=== PATIENT | male | born 1970 | race Caucasian/White ===

== ENCOUNTER 2022-05-11 21:01 | Inpatient (IN) ==
[2022-05-11] MEDS ORDERED: Morphine Sulfate 2 MG/ML SYRINGE IVP ONE (21:38)
[2022-05-11] MEDS ORDERED: Ondansetron 4 MG/2 ML VIAL IVP ONE (21:38)
[2022-05-11] MEDS ORDERED: Iopamidol - 370 500 ML MLS IVP ONE (21:38)
[2022-05-11] MEDS ORDERED: Ketorolac 30 MG/ML VIAL IVP ONE (21:38)
[2022-05-11] MEDS ORDERED: diazePAM 10 MG/2 ML SYRINGE IVP ONE (21:45)
[2022-05-11] MEDS ORDERED: *HR* OxyCODONE/APAP 5/325 TABLET PO ONE (21:46)
[2022-05-11 22:04] LABS: Basophils # 0.1 K/mcL (0.0-0.2); Basophils % 0.3 %; Eosinophils % 0.1 %; Hematocrit 50.3 % (37.5-50.1); Hemoglobin 16.8 g/dL (12.9-16.9); Immature Granulocytes % 1.1 % (0-4); Lymphocytes # 0.8 K/mcL (0.6-4.6); Lymphocytes % 3.9 %; Mean Corpuscular HGB Conc 33.4 g/dL (31.6-35.5); Mean Corpuscular Hemoglobin 30.2 pg (28.0-33.3); Mean Corpuscular Volume 90.3 fL (83.0-100.0); Mean Platelet Volume 10.4 fL (9.4-12.4); Neutrophils # 17.4 K/mcL (1.6-8.9); Platelet Count 367 K/mcL (140-400); Red Blood Count 5.57 M/mcL (4.19-5.50); Red Cell Distribution Width 13.5 % (11.5-14.5); Segmented Neutrophils % 89.6 %; White Blood Count 19.4 K/mcL (4.3-11.1)
[2022-05-11 22:26] LABS: Albumin 3.5 g/dL (3.5-5.7); Albumin/Globulin Ratio 1.1 (1.1-2.2); Bilirubin,Total 1.9 mg/dL (0.3-1.0); Calcium 8.8 mg/dL (8.6-10.3); Globulin 3.3 g/dL (2.4-3.5); Total Protein 6.8 g/dL (6.4-8.9)
[2022-05-11] MEDS ORDERED: Piperacillin/Tazobactam 3.375 GM in 0.9 % Sodium Chloride Mini Bag 100 ML IVPB ONE (23:08)
[2022-05-11] MEDS ORDERED: Naloxone 0.4 MG/ML INJ IVP PRN (23:34)
[2022-05-11] MEDS ORDERED: Ondansetron 4 MG/2 ML VIAL IVP PRN (23:34)
[2022-05-12] MEDS ORDERED: Morphine Sulfate 2 MG/ML SYRINGE IVP PRN ×2 (00:53→15:10)
[2022-05-12] MEDS ORDERED: 0.9 % Sodium Chloride 1,000 ML IVC ONE (01:37)
[2022-05-12] MEDS ORDERED: Dextrose Gel 15 GM/37.5 ML TUBE PO PRN ×4 (01:40→15:10)
[2022-05-12] MEDS ORDERED: D5% in Water 1,000 ML IVC PRN ×2 (01:40→15:10)
[2022-05-12] MEDS ORDERED: *HR* Dextrose 50 % in Water (Syg) 50 ML SYRINGE IVP PRN ×2 (01:40→15:10)
[2022-05-12] MEDS: MetroNIDAZOLE 500 MG/100 ML 500 MG/100 ML BAG IVPB SCH ×4 (02:08→23:13)
[2022-05-12] MEDS: Ringers Solution, Lactated 1,000 ML IVC SCH ×4 (02:08→23:14)
[2022-05-12 03:19] LABS: Basophils # 0.1 K/mcL (0.0-0.2); Basophils % 0.6 %; Hematocrit 48.1 % (37.5-50.1); Hemoglobin 15.7 g/dL (12.9-16.9); Lymphocytes # 0.9 K/mcL (0.6-4.6); Lymphocytes % 4.1 %; Mean Corpuscular HGB Conc 32.6 g/dL (31.6-35.5); Mean Corpuscular Hemoglobin 29.9 pg (28.0-33.3); Mean Corpuscular Volume 91.6 fL (83.0-100.0); Mean Platelet Volume 10.5 fL (9.4-12.4); Monocytes # 1.1 K/mcL (0.0-1.3); Monocytes % 5.1 %; Neutrophils # 19.6 K/mcL (1.6-8.9); Platelet Count 341 K/mcL (140-400); Red Blood Count 5.25 M/mcL (4.19-5.50); Red Cell Distribution Width 13.7 % (11.5-14.5); Segmented Neutrophils % 89.2 %
[2022-05-12 03:31] LABS: Estimated Average Glucose 123 mg/dl; Hemoglobin A1C 5.9 %
[2022-05-12 03:37] LABS: INR 1.4; Prothrombin Time 15.7 Seconds (9.4-12.1)
[2022-05-12 03:46] LABS: Albumin 3.3 g/dL (3.5-5.7); Albumin/Globulin Ratio 1.1 (1.1-2.2); Bilirubin,Direct 0.9 mg/dL (0.0-0.2); Bilirubin,Total 1.9 mg/dL (0.3-1.0); Total Protein 6.3 g/dL (6.4-8.9)
[2022-05-12 03:48] LABS: Calcium 8.6 mg/dL (8.6-10.3); Magnesium 1.5 mg/dL (1.6-2.6); Potassium 4.2 mEq/L (3.5-5.1)
[2022-05-12 04:31] LABS: Platelet Estimate Normal (Normal); Toxic Granulation Present (Not Present)
[2022-05-12] MEDS ORDERED: Insulin LISPRO 300 UNITS/3 ML VIAL SUBQ SCH (06:00)
[2022-05-12 06:14] LABS: Bacteria,Urine Few per hpf (None-Few); Bilirubin,Urine Small (Negative); Blood,Urine Negative (Negative); Clarity,Urine Clear (Clear); Color,Urine Orange (Yellow); Glucose,Urine (UA) Normal (Normal); Ketones,Urine Trace mg/dL (Negative); Leukocyte Esterase,Urine Negative (Negative); Mucus,Urine Few per lpf (None-Few); Nitrite,Urine Negative (Negative); Protein,Urine 50 mg/dL (Neg-Trace); Specific Gravity,Urine > 1.030 (1.010-1.025); Squamous Epithelial Cell,Urine Few per hpf (None-Few); WBC,Urine 0-3 per hpf (0-3)
[2022-05-12] MEDS ORDERED: Piperacillin/Tazobactam 3.375 GM in 0.9 % Sodium Chloride Mini Bag 100 ML IVPB SCH (08:00)
[2022-05-12] MEDS ORDERED: *HR* Rocuronium Bromide 50 MG/5 ML VIAL ONE (08:41)
[2022-05-12] MEDS ORDERED: *HR* Midazolam HCl 2 MG/2 ML VIAL ONE (08:41)
[2022-05-12] MEDS ORDERED: *HR* Succinylcholine 200 MG/10 ML VIAL IVP ONE (08:41)
[2022-05-12] MEDS ORDERED: *HR* FentaNYL (PF) 100 MCG/2 ML VIAL ONE (08:41)
[2022-05-12] MEDS ORDERED: Lidocaine -MPF 2% 5 ML VIAL ONE (08:41)
[2022-05-12] MEDS ORDERED: *HR* Propofol 200 MG/20 ML VIAL IVP ONE (08:41)
[2022-05-12] MEDS ORDERED: Ketamine HCL *QUVA* 50mg (1mL) SYRINGE ONE (08:44)
[2022-05-12] MEDS ORDERED: Acetaminophen IV 1,000 MG/100 ML BAG IVPB ONE ×2 (08:53→09:43)
[2022-05-12] MEDS ORDERED: *HR* HYDROmorphone PF 0.5 MG/0.5 ML SYRINGE IVP PRN ×2 (08:53→15:10)
[2022-05-12] MEDS ORDERED: cefOXitin 2,000 MG in 0.9 % Sodium Chloride 20 ML IVP ONE (09:40)
[2022-05-12] MEDS ORDERED: *HR* Magnesium Sulfate 1 GM/2 ML VIAL ONE (09:43)
[2022-05-12] MEDS ORDERED: Ondansetron 4 MG/2 ML VIAL ONE (09:43)
[2022-05-12] MEDS ORDERED: *HR* HYDROMORPHONE 2 MG/ML VIAL ONE (09:58)
[2022-05-12] MEDS ORDERED: Heparin 1,000 UNITS/500 mL 500 ML ONE (10:09)
[2022-05-12] MEDS: Insulin LISPRO 300 UNITS/3 ML VIAL SUBQ SCH ×4 (12:09→22:00)
[2022-05-12] MEDS ORDERED: Ondansetron 4 MG/2 ML VIAL IVP PRN (15:10)
[2022-05-12] MEDS ORDERED: *HR* HYDROmorphone (PF) 1 MG/ML SYRINGE IVP PRN (15:10)
[2022-05-12] MEDS ORDERED: Naloxone 0.4 MG/ML INJ IVP PRN (15:10)
[2022-05-12] MEDS ORDERED: Ketorolac 30 MG/ML VIAL IVP PRN (15:10)
[2022-05-12] MEDS: Piperacillin/Tazobactam 3.375 GM in 0.9 % Sodium Chloride Mini Bag 100 ML IVPB SCH ×2 (16:57→23:13)
[2022-05-12] MEDS: Acetaminophen IV 1,000 MG/100 ML BAG IVPB SCH ×2 (18:56→23:23)
[2022-05-13] MEDS: Insulin LISPRO 300 UNITS/3 ML VIAL SUBQ SCH ×6 (00:29→19:20)
[2022-05-13 01:40] LABS: Basophils # 0.1 K/mcL (0.0-0.2); Basophils % 0.3 %; Hematocrit 43.7 % (37.5-50.1); Immature Granulocytes % 1.4 % (0-4); Lymphocytes # 0.8 K/mcL (0.6-4.6); Lymphocytes % 3.4 %; Mean Corpuscular HGB Conc 32.3 g/dL (31.6-35.5); Mean Corpuscular Hemoglobin 29.4 pg (28.0-33.3); Mean Platelet Volume 10.6 fL (9.4-12.4); Monocytes # 0.8 K/mcL (0.0-1.3); Monocytes % 3.4 %; Neutrophils # 20.6 K/mcL (1.6-8.9); Platelet Count 333 K/mcL (140-400); Red Cell Distribution Width 13.8 % (11.5-14.5); Segmented Neutrophils % 91.5 %; White Blood Count 22.5 K/mcL (4.3-11.1)
[2022-05-13 01:42] LABS: Hemoglobin 14.1 g/dL (12.9-16.9)
[2022-05-13 01:45] LABS: Albumin 2.9 g/dL (3.5-5.7); Bilirubin,Total 1.5 mg/dL (0.3-1.0); Calcium 8.1 mg/dL (8.6-10.3); Globulin 2.8 g/dL (2.4-3.5); Magnesium 2.3 mg/dL (1.6-2.6); Phosphorous 3.1 mg/dL (2.7-4.5); Total Protein 5.7 g/dL (6.4-8.9)
[2022-05-13 02:14] LABS: Platelet Estimate Normal (Normal); Toxic Granulation Present (Not Present)
[2022-05-13] MEDS: Acetaminophen IV 1,000 MG/100 ML BAG IVPB SCH ×4 (05:59→23:43)
[2022-05-13] MEDS: Ringers Solution, Lactated 1,000 ML IVC SCH ×3 (07:32→23:55)
[2022-05-13] MEDS: MetroNIDAZOLE 500 MG/100 ML 500 MG/100 ML BAG IVPB SCH ×3 (07:33→23:56)
[2022-05-13] MEDS: Piperacillin/Tazobactam 3.375 GM in 0.9 % Sodium Chloride Mini Bag 100 ML IVPB SCH ×3 (07:33→23:56)
[2022-05-13] MEDS ORDERED: Saliva Stimulant 44.3ml BOTTLE PO PRN (08:35)
[2022-05-13] MEDS ORDERED: Chloraseptic Spray 177 ML BOTTLE MM PRN (08:35)
[2022-05-13] MEDS: *HR* LORazepam 2 MG/ML VIAL IVP PRN ×3 (11:07→23:43)
[2022-05-13] MEDS ORDERED: Ketorolac 30 MG/ML VIAL IVP SCH (12:00)
[2022-05-13] MEDS: Pantoprazole 40 MG VIAL IVP SCH (18:26)
[2022-05-14] MEDS: Insulin LISPRO 300 UNITS/3 ML VIAL SUBQ SCH ×6 (00:01→21:05)
[2022-05-14 02:09] LABS: Basophils # 0.1 K/mcL (0.0-0.2); Basophils % 0.3 %; Eosinophils % 0.1 %; Hematocrit 36.2 % (37.5-50.1); Immature Granulocytes % 2.3 % (0-4); Lymphocytes # 1.5 K/mcL (0.6-4.6); Lymphocytes % 6.7 %; Mean Corpuscular HGB Conc 32.6 g/dL (31.6-35.5); Mean Corpuscular Hemoglobin 30.1 pg (28.0-33.3); Mean Corpuscular Volume 92.3 fL (83.0-100.0); Mean Platelet Volume 10.2 fL (9.4-12.4); Monocytes # 0.8 K/mcL (0.0-1.3); Monocytes % 3.5 %; Neutrophils # 19.6 K/mcL (1.6-8.9); Platelet Count 318 K/mcL (140-400); Red Blood Count 3.92 M/mcL (4.19-5.50); Red Cell Distribution Width 14.3 % (11.5-14.5); Segmented Neutrophils % 87.1 %; White Blood Count 22.5 K/mcL (4.3-11.1)
[2022-05-14 02:11] LABS: Hemoglobin 11.8 g/dL (12.9-16.9)
[2022-05-14 02:28] LABS: BUN/Creatinine Ratio 40 (6-26); Blood Urea Nitrogen 38 mg/dL (6-20); Calcium 7.8 mg/dL (8.6-10.3); Carbon Dioxide 28 mEq/L (23-29); Chloride 107 mEq/L (98-107); Glucose 138 mg/dL (70-105); Magnesium 2.3 mg/dL (1.6-2.6); Osmolality,Calculated 303 (280-300); Phosphorous 2.3 mg/dL (2.7-4.5); Potassium 4.1 mEq/L (3.5-5.1); Sodium 141 mEq/L (136-145)
[2022-05-14] MEDS: Pantoprazole 40 MG VIAL IVP SCH ×2 (05:30→17:42)
[2022-05-14] MEDS: Acetaminophen IV 1,000 MG/100 ML BAG IVPB SCH ×4 (05:31→23:37)
[2022-05-14] MEDS ORDERED: Calcium Chloride 1,000 MG in 0.9 % Sodium Chloride 100 ML IVPB ONE (06:20)
[2022-05-14] MEDS: Calcium Gluconate 1gm/50mL 1 GM/50 ML BAG IVPB SCH ×2 (08:34→09:31)
[2022-05-14] MEDS: MetroNIDAZOLE 500 MG/100 ML 500 MG/100 ML BAG IVPB SCH ×3 (08:44→23:35)
[2022-05-14] MEDS: Piperacillin/Tazobactam 3.375 GM in 0.9 % Sodium Chloride Mini Bag 100 ML IVPB SCH ×3 (10:18→23:36)
[2022-05-14] MEDS: Ringers Solution, Lactated 1,000 ML IVC SCH ×3 (11:07→21:04)
[2022-05-14] MEDS: Fluconazole 200 MG/100 ML 200 MG/100 ML BAG IVPB SCH (11:07)
[2022-05-14] MEDS: *HR* Heparin 5,000 UNIT/ML VIAL SQ SCH ×2 (14:38→21:05)
[2022-05-14] MEDS: Ibuprofen 600 MG TABLET PO SCH ×2 (17:42→23:35)
[2022-05-14] MEDS: *HR* OxyCODONE Immed Rel 5 MG TABLET PO PRN (21:04)
[2022-05-15] MEDS: Insulin LISPRO 300 UNITS/3 ML VIAL SUBQ SCH ×7 (02:49→23:53)
[2022-05-15 03:00] LABS: Hematocrit 36.8 % (37.5-50.1); Hemoglobin 11.4 g/dL (12.9-16.9); Mean Corpuscular Hemoglobin 29.8 pg (28.0-33.3); Mean Corpuscular Volume 96.1 fL (83.0-100.0); Mean Platelet Volume 10.3 fL (9.4-12.4); Platelet Count 315 K/mcL (140-400); Red Blood Count 3.83 M/mcL (4.19-5.50); Red Cell Distribution Width 14.5 % (11.5-14.5); White Blood Count 13.9 K/mcL (4.3-11.1)
[2022-05-15 03:03] LABS: BUN/Creatinine Ratio 34 (6-26); Blood Urea Nitrogen 29 mg/dL (6-20); Calcium 7.8 mg/dL (8.6-10.3); Carbon Dioxide 25 mEq/L (23-29); Chloride 106 mEq/L (98-107); Glucose 113 mg/dL (70-105); Osmolality,Calculated 293 (280-300); Phosphorous 3.6 mg/dL (2.7-4.5); Potassium 3.9 mEq/L (3.5-5.1); Sodium 138 mEq/L (136-145)
[2022-05-15] MEDS: *HR* Heparin 5,000 UNIT/ML VIAL SQ SCH ×3 (03:58→21:27)
[2022-05-15] MEDS: Acetaminophen IV 1,000 MG/100 ML BAG IVPB SCH (03:59)
[2022-05-15] MEDS: Pantoprazole 40 MG VIAL IVP SCH ×2 (03:59→17:36)
[2022-05-15 04:34] LABS: Eosinophils # 0.3 K/mcL (0.0-0.6); Lymphocytes # 1.7 K/mcL (0.6-4.6); Monocytes # 0.6 K/mcL (0.0-1.3); Neutrophils # 11.1 K/mcL (1.6-8.9)
[2022-05-15 04:36] LABS: Platelet Estimate Normal (Normal)
[2022-05-15] MEDS: Ringers Solution, Lactated 1,000 ML IVC SCH (05:39)
[2022-05-15] MEDS: Ibuprofen 600 MG TABLET PO SCH ×3 (09:50→23:52)
[2022-05-15] MEDS: Fluconazole 200 MG/100 ML 200 MG/100 ML BAG IVPB SCH (09:50)
[2022-05-15] MEDS: Piperacillin/Tazobactam 3.375 GM in 0.9 % Sodium Chloride Mini Bag 100 ML IVPB SCH ×3 (09:51→23:53)
[2022-05-15] MEDS: MetroNIDAZOLE 500 MG/100 ML 500 MG/100 ML BAG IVPB SCH ×3 (10:00→23:52)
[2022-05-15] MEDS: Acetaminophen 325 MG TABLET PO SCH ×3 (13:22→23:53)
[2022-05-15] MEDS: *HR* OxyCODONE Immed Rel 5 MG TABLET PO PRN (17:50)
[2022-05-16 03:05] LABS: Hematocrit 36.7 % (37.5-50.1); Hemoglobin 11.4 g/dL (12.9-16.9); Mean Corpuscular HGB Conc 31.1 g/dL (31.6-35.5); Mean Corpuscular Hemoglobin 29.5 pg (28.0-33.3); Mean Corpuscular Volume 95.1 fL (83.0-100.0); Nucleated Red Blood Cells 0.2 /100 WBC (0); Platelet Count 312 K/mcL (140-400); Red Blood Count 3.86 M/mcL (4.19-5.50); Red Cell Distribution Width 14.2 % (11.5-14.5)
[2022-05-16 03:25] LABS: BUN/Creatinine Ratio 31 (6-26); Blood Urea Nitrogen 24 mg/dL (6-20); Calcium 7.7 mg/dL (8.6-10.3); Carbon Dioxide 26 mEq/L (23-29); Chloride 106 mEq/L (98-107); Glucose 100 mg/dL (70-105); Magnesium 1.9 mg/dL (1.6-2.6); Osmolality,Calculated 290 (280-300); Phosphorous 3.7 mg/dL (2.7-4.5); Potassium 3.7 mEq/L (3.5-5.1); Sodium 138 mEq/L (136-145)
[2022-05-16 03:40] LABS: Platelet Estimate Normal (Normal)
[2022-05-16 03:41] LABS: Eosinophils # 0.3 K/mcL (0.0-0.6); Lymphocytes # 1.8 K/mcL (0.6-4.6); Monocytes # 0.3 K/mcL (0.0-1.3); Neutrophils # 10.4 K/mcL (1.6-8.9)
[2022-05-16] MEDS: Acetaminophen 325 MG TABLET PO SCH ×3 (04:07→18:06)
[2022-05-16] MEDS: Pantoprazole 40 MG VIAL IVP SCH ×2 (04:08→18:06)
[2022-05-16] MEDS: Insulin LISPRO 300 UNITS/3 ML VIAL SUBQ SCH ×5 (04:19→20:07)
[2022-05-16] MEDS: Ibuprofen 600 MG TABLET PO SCH ×2 (09:14→16:09)
[2022-05-16] MEDS: Fluconazole 200 MG/100 ML 200 MG/100 ML BAG IVPB SCH (09:14)
[2022-05-16] MEDS: Piperacillin/Tazobactam 3.375 GM in 0.9 % Sodium Chloride Mini Bag 100 ML IVPB SCH ×2 (09:14→16:11)
[2022-05-16] MEDS: MetroNIDAZOLE 500 MG/100 ML 500 MG/100 ML BAG IVPB SCH ×2 (09:14→16:09)
[2022-05-16] MEDS: *HR* Heparin 5,000 UNIT/ML VIAL SQ SCH ×3 (09:34→20:02)
[2022-05-17] MEDS: MetroNIDAZOLE 500 MG/100 ML 500 MG/100 ML BAG IVPB SCH ×2 (00:34→09:08)
[2022-05-17] MEDS: Piperacillin/Tazobactam 3.375 GM in 0.9 % Sodium Chloride Mini Bag 100 ML IVPB SCH ×2 (00:34→09:09)
[2022-05-17] MEDS: Acetaminophen 325 MG TABLET PO SCH ×3 (00:35→11:00)
[2022-05-17] MEDS: Ibuprofen 600 MG TABLET PO SCH ×2 (00:35→09:10)
[2022-05-17] MEDS: Insulin LISPRO 300 UNITS/3 ML VIAL SUBQ SCH ×4 (00:36→11:27)
[2022-05-17 02:26] LABS: Hematocrit 35.4 % (37.5-50.1); Mean Corpuscular HGB Conc 31.1 g/dL (31.6-35.5); Mean Corpuscular Hemoglobin 29.4 pg (28.0-33.3); Mean Corpuscular Volume 94.7 fL (83.0-100.0); Mean Platelet Volume 10.2 fL (9.4-12.4); Platelet Count 361 K/mcL (140-400); Red Blood Count 3.74 M/mcL (4.19-5.50); White Blood Count 11.6 K/mcL (4.3-11.1)
[2022-05-17 02:47] LABS: BUN/Creatinine Ratio 23 (6-26); Blood Urea Nitrogen 18 mg/dL (6-20); Calcium 7.6 mg/dL (8.6-10.3); Carbon Dioxide 26 mEq/L (23-29); Chloride 108 mEq/L (98-107); Glucose 128 mg/dL (70-105); Magnesium 1.9 mg/dL (1.6-2.6); Osmolality,Calculated 288 (280-300); Phosphorous 2.8 mg/dL (2.7-4.5); Sodium 137 mEq/L (136-145)
[2022-05-17 02:52] LABS: Eosinophils # 0.5 K/mcL (0.0-0.6); Lymphocytes # 1.4 K/mcL (0.6-4.6); Monocytes # 0.2 K/mcL (0.0-1.3); Neutrophils # 9.5 K/mcL (1.6-8.9)
[2022-05-17 02:53] LABS: Platelet Estimate Normal (Normal)
[2022-05-17] MEDS: *HR* Heparin 5,000 UNIT/ML VIAL SQ SCH ×2 (05:39→14:14)
[2022-05-17] MEDS: Pantoprazole 40 MG VIAL IVP SCH (06:01)
[2022-05-17] MEDS: *HR* OxyCODONE Immed Rel 5 MG TABLET PO PRN (09:09)
[2022-05-17] MEDS: Fluconazole 200 MG/100 ML 200 MG/100 ML BAG IVPB SCH (09:10)
[2022-05-17 10:25] VITALS: BP 135/62; PULSE 75; TEMP 98; O2SAT 96
[2022-05-17] MEDS ORDERED: hydroCHLOROthiazide 25 MG TABLET PO SCH (10:30)
== END 2022-05-17 14:56 | disposition home health service (06) | DRG 853 ==
LOC: 3BNU 21:01 → EMEROOARM 21:01 → SUATTDRO 23:56 → 3BNU 05-12 00:29
PROVIDERS: ADMIT Student in an Organized Health Care Education/Training Program; ATTEND Internal Medicine